=== PATIENT | female | born 1990 | race Caucasian/White ===

== ENCOUNTER → 2020-01-21 | Outpatient (CLI) | payer OTHER, SELFPAY ==
[2020-01-25 15:57] LABS: HPV APTIMA, High Risk Negative (Negative)
== END | disposition home or self-care (01) ==
PROVIDERS: Visit Provider Family Medicine
DX: Z12.4 Encounter for screening for malignant neoplasm of cervix (principal)
CPT/HCPCS: 87624; 88175; G0145

== ENCOUNTER → 2020-02-02 08:56 | Outpatient (CLI) | payer OTHER, SELFPAY ==
--- NOTE | 2020-02-02 09:13 | BI_ITS ---
MAMMOGRAPHY - BILATERAL DIAGNOSTIC REASON FOR EXAM: Female, 29 years old. BILAT DX FOR LT LUMP X 2 MONTHS - FAM HX OF PATERNAL GRANDMOTHER @ AGE 70 Tamp; PATERNAL AUNT @ AGE 50''S - NO PREV SURG''S - CURR BC''S X 2-3 YRS PERTINENT HISTORY: Palpable lump in the left breast TECHNIQUE: Digital bilateral breast italo (3D mammographic acquisition) in the CC and MLO projections. 2-D mediolateral oblique (MLO) and craniocaudad (CC) views of both breasts were obtained. CAD: Full Field Digital Mammography with Computer Added Detection was performed. COMPARISON: None. FINDINGS: Breast Composition: The breasts are extremely dense, which lowers the sensitivity of mammography. There is a lobulated mass in the upper outer quadrant of the left breast for which further evaluation by ultrasound would be recommended. There are no suspicious calcifications. No other significant abnormalities are identified. BI/DIAG MAMM W/CAD, BILAT IMPRESSION: There is a lobulated mass in the upper outer quadrant of the left breast for which further evaluation by ultrasound would be recommended. ASSESSMENT CATEGORY: BIRADS Category 0: Incomplete. Need additional imaging evaluation. A letter regarding these results will be sent to the patient by the facility within 30 days. Approximately 10% of breast cancers are not detected by mammography. A normal mammogram should not delay biopsy of a clinically suspicious abnormality. Electronically Signed: Avila Dove, at 15:39 EDT Tel , Service support ,
--- NOTE | 2020-02-02 09:13 | US_ITS ---
STUDY: ULTRASOUND BREAST - LEFT REASON FOR EXAM: Female, 29 years old. LEFT BREAST AREA OF PALP LUMP. TECHNIQUE: Axial and longitudinal images of the LEFT breast were performed with a high resolution ultrasound transducer. # OF IMAGES: 14 COMPARISON: None. FINDINGS: LEFT Breast: There is a lesion #1 in the lower outer quadrant. The lesion measures 1.2 x 1.8 x 0.8 cm in size. Clock notation: 1:30 o''clock position. Distance from nipple: 5 cm. Posterior Enhancement: Yes. Posterior Shadowing: None. Margins: Sharp and jagged. Echogenicity: Hypoechoic. Compression effect on Shape: No change. US/Breast Limited Unilateral IMPRESSION: Nonspecific mass in the left breast may represent a neoplastic process. Biopsy is recommended. ASSESSMENT CATEGORY: BIRADS Category 4: Suspicious - Biopsy Should Be Considered. A letter regarding these results will be sent to the patient by the facility within 30 days. Electronically Signed: Avila Dove, at 15:26 EDT Tel , Service support ,
== END ==
PROVIDERS: Referring Provider Family Medicine; Visit Provider Family Medicine
DX: N63.21 Unspecified lump in the left breast, upper outer quadrant (principal)
CPT/HCPCS: 76642; 77062; 77066; G0279

== ENCOUNTER → 2020-02-11 | Outpatient (CLI) | payer OTHER, SELFPAY ==
--- NOTE | 2020-02-11 | BRBX_PTH ---
PATIENT: CORINE GALLO LOC: [facility] U#:[id number] AGE/SX: 29/F ROOM: RE02/11/[address]: Dr. Juanita Jennings MD : 1990 BED: DIS: 02/11/2020 SPEC #: [id number] RECD: 02/11/20 16:08 STATUS: [place] #: [id number] MEY: 02/11/20 00:[address]: Juanita Jennings DEPT: SURGICAL PATHOLOGY RECD BY: Fuad Felix ENTERED: 02/12/20 10:53 SP TYPE: BREAST BX OTHR DR: Dr. Muriel Hummel MD Tissues: Left breast, NOS Procedures: Surgery Specimen Level IV HEADER OPERATION: Left breast core biopsy PRE-OP DIAGNOSIS: Left breast mass TISSUE SUBMITTED: Left breast tissue FIXATION TIME: 77 hours MICROSCOPIC DIAGNOSIS Left breast, core biopsy: Fibroadenoma. AM:daquan 6/1/20 MICROSCOPIC DESCRIPTION Slides are reviewed. GROSS DESCRIPTION Received in fixative is one container labeled with the patient name and designated left breast. The specimen consists of multiple elongated fragments of bueno-yellow fibroadipose tissue that in aggregate measure 1 x 0.3 x 0.1 cm. The entire specimen is submitted in one cassette. / SJ:rg 02/12/20 TC:5 CPT: 54527
[2020-02-11 14:26] VITALS: BMI 22.7
== END | disposition home or self-care (01) ==
LOC: LABSPEC 16:35
PROVIDERS: PCP Family Medicine; Visit Provider Surgery
DX: N63.20 Unspecified lump in the left breast, unspecified quadrant (principal)
CPT/HCPCS: 88305

== ENCOUNTER → 2024-02-06 | Outpatient (CLI) | payer OTHER, SELFPAY ==
[2024-02-06 18:36] LABS: HIV - WCH Non-Reactive (Nonreactive); Syphilis Antibodies Non-reactive
== END | disposition home or self-care (01) ==
LOC: BFHLAB 15:29
PROVIDERS: PCP Family Medicine; Referring Provider Family Medicine; Visit Provider Family Medicine
DX: Z20.9 Contact with and (suspected) exposure to unspecified communicable disease (principal)
CPT/HCPCS: 36415; 86703; 86780; 87491; 87591

== ENCOUNTER → 2025-02-10 | Outpatient (CLI) | payer OTHER, SELFPAY ==
[2025-02-13 09:48] LABS: HPV Reflexed? YES, CHARGE PATIENT
== END | disposition home or self-care (01) ==
LOC: LABSPEC 12:52
PROVIDERS: PCP Family Medicine; Referring Provider Family Medicine; Visit Provider Family Medicine
DX: Z12.4 Encounter for screening for malignant neoplasm of cervix (principal)
CPT/HCPCS: 87624; 88175; G0145